=== PATIENT | female | born 1980 | race American Indian/Alaskan Native ===

== ENCOUNTER 2019-11-30 12:42 | Emergency (ER) | payer SELFPAY ==
[2019-11-30] MEDS ORDERED: ASPIRIN 325 MG TAB PO ONE (12:58)
[2019-11-30 14:15] LABS: Basophils # (Auto) 0.1 K/mm3 (0.0-0.1); Eosinophils # (Auto) 0.2 K/mm3 (0.0-0.4); Eosinophils % (Auto) 2.8 % (0.0-4.3); Hematocrit 37.5 % (30.3-42.9); Hemoglobin 12.5 gm/dl (10.1-14.3); Lymphocytes # (Auto) 2.6 K/mm3 (1.2-5.4); Lymphocytes % (Auto) 40.3 % (13.4-35.0); Mean Corpuscular HGB Conc 33 % (30-34); Mean Corpuscular Volume 90 fl (79-97); Monocytes # (Auto) 0.6 K/mm3 (0.0-0.8); Platelet Count 377 K/mm3 (140-440); Red Blood Count 4.17 M/mm3 (3.65-5.03); Red Cell Distribution Width 13.1 % (13.2-15.2)
[2019-11-30 14:36] LABS: Blood Urea Nitrogen 8 mg/dL (7-17); Calcium 9.5 mg/dL (8.4-10.2); Hemolysis Index 5
[2019-11-30 14:51] LABS: BUN/Creatinine Ratio 13
[2019-11-30 15:17] LABS: HCG Qualitative,Urine Negative (Negative)
[2019-11-30 15:35] VITALS: BP 119/77
--- NOTE | 2019-11-30 15:43 | XRay Report ---
CHEST 1 VIEW 11/30/2019 3:34 PM INDICATION / CLINICAL INFORMATION: Chest Pain. COMPARISON: None available. FINDINGS: SUPPORT DEVICES: None. HEART / MEDIASTINUM: No significant abnormality. LUNGS / PLEURA: No significant pulmonary or pleural abnormality. No pneumothorax. ADDITIONAL FINDINGS: No significant additional findings. IMPRESSION: 1. No acute findings. Signer Name: Aaron Henderson MD Signed: 11/30/2019 3:38 PM Workstation Name: [id number]
[2019-11-30] MEDS ORDERED: ACETAMINOPHEN 325 MG TAB PO ONE (15:44)
--- NOTE | 2019-11-30 15:46 | Emergency Department Report ---
ED Chest Pain HPI - General Chief Complaint: Chest Pain Stated Complaint: CHEST PAIN Time Seen by Provider: 11/30/19 15:33 Source: patient Mode of arrival: Ambulatory Limitations: No Limitations - History of Present Illness Initial Comments: 39-year-old female presents to the emergency room complaining of right upper chest pain that is tight in nature. Patient states that the pain is worse with movement and it is intermittent. She denies any fever chills no nausea no vomiting no sweating. Patient states she had this type of pain before about 3 years ago and was given antibiotics and it went away. Patient states that she took an ibuprofen for the pain last night and thinks she did get some relief. MD Complaint: chest pain Onset/Timin -: days(s) Onset: during exertion Pain Location: right chest Severity: mild Quality: tightness Consistency: intermittent Improves With: rest Worsens With: movement re: denies: nausea, vomting, diaphoresis, dyspnea, sense of impending doom Other Symptoms: denies: fever, syncope, rash, acid taste in mouth, leg swelling, palpitations, burping Aspirin use within the Past 7 Days: (0) No - Related Data On Oral Contraceptives: No Previous Rx's Medication Instructions Recorded Last Taken Type Albuterol Mdi (or & Nicu Only) 1 puff IH Q4-6H PRN #1 inha 03/17/18 Unknown Rx [ProAir HFA Inhaler] Amoxicillin 500 mg PO TID #21 capsule 03/17/18 Unknown Rx Acetaminophen/Codeine [Tylenol 1 tab PO Q6H PRN #12 tab 04/03/18 Unknown Rx /Codeine # 3 tab] Allergies Allergy/AdvReac Type Severity Reaction Status Date / Time No Known Allergies Allergy Unverified 03/17/18 06:19 Heart Score - HEART Score History: Slightly suspicious EKG: Non-specific (Probable left atrial enlargement) Age: < 45 Risk factors: No known risk factors Troponin: < normal limit HEART Score: 1 - Critical Actions Critical Actions: 0-3 pts:0.9-1.7%risk of adverse cardiac event.Candidate for discharge ED Review of Systems ROS: Stated complaint: CHEST PAIN Other details as noted in HPI Comment: All other systems reviewed and negative ED Past Medical Hx - Past Medical History Previous Medical History?: No - Surgical History Past Surgical History?: Yes Additional Surgical History: X 3 - Social History Smoking Status: Never Smoker - Medications Home Medications: Home Medications Medication Instructions Recorded Confirmed Last Taken Type Albuterol Mdi (or & Nicu Only) 1 puff IH Q4-6H PRN #1 inha 03/17/18 Unknown Rx [ProAir HFA Inhaler] Amoxicillin 500 mg PO TID #21 capsule 03/17/18 Unknown Rx Acetaminophen/Codeine [Tylenol 1 tab PO Q6H PRN #12 tab 04/03/18 Unknown Rx /Codeine # 3 tab] ED Physical Exam - General Limitations: No Limitations General appearance: alert, in no apparent distress - Head Head exam: Present: atraumatic, normocephalic - Eye Eye exam: Present: normal appearance - ENT ENT exam: Present: mucous membranes moist - Neck Neck exam: Present: normal inspection, full ROM - Respiratory Respiratory exam: Present: normal lung sounds bilaterally. Absent: respiratory distress, chest wall tenderness - Cardiovascular Cardiovascular Exam: Present: regular rate, normal rhythm. Absent: systolic murmur, diastolic murmur, rubs, gallop - GI/Abdominal GI/Abdominal exam: Present: soft, normal bowel sounds - Back Exam Back exam: Present: normal inspection, full ROM - Neurological Exam Neurological exam: Present: alert, oriented X3, normal gait - Psychiatric Psychiatric exam: Present: normal affect, normal mood - Skin Skin exam: Present: warm, dry, intact, normal color. Absent: rash ED Course Vital Signs 11/30/19 12:54 Temperature 98.0 F Pulse Rate 88 Respiratory 16 Rate Blood Pressure 119/77 O2 Sat by Pulse 97 Oximetry ED Medical Decision Making - Lab Data Result diagrams: 11/30/19 13:51 11/30/19 13:51 - Radiology Data Radiology results: report reviewed Patient: JULIO MONTANA MR#: [id number] : 1980 Acct:[id number] Age/Sex: 39 / F ADM Date: 11/30/19 Loc: ED Attending Dr: Ordering Physician: MIKE BUENROSTRO MD Date of Service: 11/30/19 Procedure(s): XR chest 1V ap Accession Number(s): [id number] cc: ED MD PORTER Fluoro Time In Minutes: CHEST 1 VIEW 11/30/2019 3:34 PM INDICATION / CLINICAL INFORMATION: Chest Pain. COMPARISON: None available. FINDINGS: SUPPORT DEVICES: None. HEART / MEDIASTINUM: No significant abnormality. LUNGS / PLEURA: No significant pulmonary or pleural abnormality. No pneumothorax. ADDITIONAL FINDINGS: No significant additional findings. IMPRESSION: 1. No acute findings. Signer Name: Aaron Henderson MD Signed: 11/30/2019 3:38 PM Workstation Name: [id number] Transcribed By: TL Dictated By: Aaron Henderson MD Electronically Authenticated By: Aaron Henderson MD Signed Date/Time: 11/30/191537 DD/ 37 TD/TT: - Medical Decision Making 39-year-old female presents to the emergency room complaining of right upper chest pain that is tight in nature. Patient states that the pain is worse with movement and it is intermittent. She denies any fever chills no nausea no vomiting no sweating. Patient states she had this type of pain before about 3 years ago and was given antibiotics and it went away. Patient states that she took an ibuprofen for the pain last night and thinks she did get some relief. Patient was given ibuprofen for pain management.'s CBC CMP urine tests are all normal. EKG just so probable LV H chest x-ray is negative. Recommend patient to take either Tylenol or ibuprofen for for chest discomfort. Follow-up with her primary care provider and title agent. Critical care attestation.: If time is entered above; I have spent that time in minutes in the direct care of this critically ill patient, excluding procedure time. ED Disposition Clinical Impression: Atypical chest pain Disposition: DC-01 TO HOME OR SELFCARE Is pt being admited?: No Does the pt Need Aspirin: No Condition: Stable Instructions: Chest Pain (ED) Additional Instructions: Chest x-ray labs EKG are all within normal limits. I recommend trying Tylenol and ibuprofen for pain management. I recommend for you to follow-up with your primary care provider as well as a title agent. I have listed their informat ion below for your convenience. Referrals: BABAK PEARL MD [Primary Care Provider] - 3-5 Days [facility] [Provider Group] - 3-5 Days MARY LEMUS MD [Staff Physician] - 3-5 Days Forms: Work/School Release Form(ED)
== END 2019-11-30 18:03 | disposition home or self-care (01) ==
LOC: ED 12:42
DX: R07.89 Other chest pain (principal); Z98.890 Other specified postprocedural states; Z79.899 Other long term (current) drug therapy
CPT/HCPCS: 36415; 71045; 80048; 81025; 84484; 85025; 93005